=== PATIENT | male | born 1995 | race African-American/Black ===

== ENCOUNTER → 2017-08-19 | Outpatient (CLI) | payer OTHER ==
--- NOTE | 2017-08-20 08:54 | RADIOLOGY IMAGING REPORT ---
FAC[place]: [facility] [place] NAME: LEILANI ODONNELL : [id number] MR: [id number] V: [id number] EXAM DATE: ORDERING PHYSICIAN: RANJAN SANDOVAL TECHNOLOGIST: Christos Serrano EXAMINATION:TWO-DIMENSIONAL ECHOCARDIOGRAPH REASON:EXERTIONAL SOB 2D Measurements (normal values in centimeters) LV endLV endRV endVent.LV PostAorticLeftPercent DiastolicSystolicDiastolicSeptumWallRootAtriumShortening (3.5-5.7)(0.9-2.6)(0.6-1.1)(0.6-1.1)(2.0-3.7)(1.9-4.0)(25-35%) [id number]% STROKE VOLUME: 65ml ESTIMATED EJECTION FRACTION: 71% PARASTERNAL LONG AXIS: Overall left ventricular systolic function appears to be normal. Right ventricle is the upper range of normal in size. The other chamber sizes are normal. Trace of mitral insufficiency is noted. No wall motion abnormalities are noted. No thickening of the left ventricle was noted. PARASTERNAL SHORT AXIS: Again overall left ventricular function appears to be normal. No wall motion abnormalities are noted. Aortic valve is trileaflet in configuration & appears to open normally. Color examination of the valves reveals only a trace to mild amount of tricuspid insufficiency & a trace amount of mitral insufficiency present. APICAL FOUR AND TWO CHAMBER: Normal left ventricular ejection fraction. Right ventricle is mildly enlarged. The other chamber sizes are normal. Trace to mild amount of tricuspid insufficiency is noted. The tricuspid regurgitation Vmax measured at 2.76m/sec. Estimated right atrial pressure is 3mm Hg. The aortic valve area & mitral valve area both measure within normal ranges at 3.4 & 3.1cm2 respectively. Left atrial & right atrial volumes are measured within normal ranges at 18.5 & 22.4ml/m2. SUBCOSTAL VIEW: No pericardial effusion was noted. No atrioseptal or ventriculoseptal defects were appreciated. OVERALL IMPRESSION: 1. Essentially normal 2D echocardiograph. A trace of mitral & tricuspid insufficiency with normal right ventricular systolic pressures. This may be physiologic in nature. 2. No left ventricular thickening was noted. No stenosis of any of the valves was noted. 3. Right ventricle is the upper range of normal in size if not slightly increased in size. Right ventricular function appears to be normal. TAPSE is measured at 2.6. Dictated by: Jonel Avery M.D. on 08/19/2017 at 17:18 Transcribed by: ALEJANDRO on 08/20/2017 at 8:39 Approved by: Jonel Avery M.D. on 08/20/2017 at 8:53 [facility]
== END ==
LOC: US 02:52
PROVIDERS: ATTEND Emergency Medicine Sports Medicine
DX: Z13.6 Encounter for screening for cardiovascular disorders (principal); I34.0 Nonrheumatic mitral (valve) insufficiency; I07.1 Rheumatic tricuspid insufficiency
CPT/HCPCS: 93306